=== PATIENT | male | born 1990 | race Caucasian/White ===

== ENCOUNTER 2017-09-20 17:30 | Emergency (ER) | payer OTHER ==
--- NOTE | 2017-09-20 17:35 | ED Physician Documentation ---
General Adult - HISTORIAN Historian: patient - HPI Stated Complaint: hyperglycemia Chief Complaint: General Adult Onset: other Timing: still present Severity: mild Further Comments: yes (He has had a provider issue with his new insurance. He states he is not able to get his insulin filled. He has tried with no approval. he states that he tried today and the pharmacist said it had to be 90 days with his new insurace but it could not be an ER provider had to be a listed PCP. He has an appt with a new provider that is with his insurance - appt is not until Saturday .) Last known Well Code/Unknown Code: Unknown - ROS CONST: no problems EYES/ENT: none CVS/RESP: none GI/: none MS/SKIN/LYMPH: none NEURO/PSYCH: headache. denies: fainting, dizziness, tingling, numbness, difficulty walking, difficulty with speech, anxiety, depression - PAST HX Past History: other (DM type I ) Other History: diabetes Type 1 Surgeries/Procedures: none Immunizations: UTD Allergies/Adverse Reactions: Allergies Allergy/AdvReac Type Severity Reaction Status Date / Time No Known Allergies Allergy Unverified 09/20/17 17:55 Home Medications: Ambulatory Orders Medication Instructions Recorded Insulin Lispro [Humalog] 09/20/17 - SOCIAL HX Smoking History: non-smoker Alcohol Use: none Drug Use: none - FAMILY HX Family History: No - REVIEWED ASSESSMENTS Nursing Assessment Reviewed: Yes Vitals Reviewed: Yes Progress - Progress Progress: 1843: Discussed results with pt for blood sugar today he would give himself 11 units DG 1899: discussed lab with pharmacist and his suggestion was Relion Insuin for now. Due to non fill of NON PCP insulin. DG 1999: symptoms improving DG General Adult Physical Exam - PHYSICAL EXAM GENERAL APPEARANCE: no distress EENT: eye inspection normal, ENT inspection normal NECK: normal inspection RESPIRATORY: no resp distress, chest non-tender, breath sounds normal CVS: reg rate & rhythm, heart sounds normal, equal pulses, no murmur ABDOMEN: soft, normal bowel sounds, no distension, non-tender SKIN: warm/dry, normal color EXTREMITIES: non-tender, normal range of motion, no evidence of injury, no edema NEURO: oriented X3, CN's nml as tested, motor nml, sensation nml, mood/affect nml, cognition normal Discharge Clincal Impression: Hyperglycemia due to type 1 diabetes mellitus Referrals: Antonio Weir MD [Primary Care Provider] - 2 Days Comments: 1. Relion Regular insulin from [employer] - due to pharmacy issues 2. Monitor sugar close 3. Watch diet 4. Return to ER for any concerns 5. Keep PCP appt Condition: Stable Disposition: 01 HOME, SELF-CARE Decision to Admit: NO Date of Decison to Admit: 09/20/17 Decision Time: 20:45
[2017-09-20] MEDS ORDERED: 0.9 % SODIUM CHLORIDE 1,000 ML IV ONE ×2 (17:45→18:50)
[2017-09-20 18:03] LABS: BASOPHILS % 0.9 (0.0-1.5); EOSINOPHILS % 1.8 % (0.0-6.8); MEAN CORPUSCULAR HEMOGLOBIN 29.2 pg (28.0-34.0); MEAN CORPUSCULAR VOLUME 83.2 fl (80.0-100.0); MONOCYTES % 4.7 % (0.0-11.0); NEUTROPHILS # 5.4 # k/uL (1.4-7.7)
[2017-09-20 18:30] LABS: eGFR (African) > 60; eGFR (Non-African) > 60
[2017-09-20] MEDS ORDERED: INSULIN REGULAR, HUMAN 100 UNIT/ML 3ML VIAL SQ ONE ×2 (18:40→19:56)
[2017-09-20 21:03] VITALS: BP 147/78
[2017-09-21 06:39] LABS: APPEARANCE,URINE CLEAR (CLEAR); COLOR,URINE YELLOW (YELLOW); OCCULT BLOOD,URINE NEGATIVE (NEGATIVE); UROBILINOGEN URINE 0.2 Eu (0.2-1.0)
== END 2017-09-20 21:00 | disposition home or self-care (01) ==
LOC: EDBD 17:30 → ED 17:30
DX: E10.649 Type 1 diabetes mellitus with hypoglycemia without coma (principal)
CPT/HCPCS: 80053; 81002; 83690; 85025; J1815; J7030; 96365; 96366; 96372; S1016

== ENCOUNTER 2018-02-04 10:45 | Emergency (ER) | payer OTHER ==
[2018-02-04 10:56] VITALS: BP 132/109
--- NOTE | 2018-02-04 11:03 | ED Physician Documentation ---
General Adult - HISTORIAN Historian: patient - HPI Stated Complaint: L Rib pain Chief Complaint: Fall Onset: minutes (30) Timing: still present Severity: mild Further Comments: yes (He states he started to fall and he tried to catch himself and felt a "pop" on his left upper chest - he felt rib area. The pain is worse with deep breath or cough. More with laughing. He has no other complaints. He is able to take a deep breath .) Last known Well Code/Unknown Code: Unknown - ROS CONST: no problems - PAST HX Past History: other (DM type 1 ) Immunizations: UTD Allergies/Adverse Reactions: Allergies Allergy/AdvReac Type Severity Reaction Status Date / Time No Known Allergies Allergy Verified 02/04/18 10:56 Home Medications: Ambulatory Orders Medication Instructions Recorded Insulin Lispro [Humalog] unit PRN PRN 09/20/17 - SOCIAL HX Smoking History: non-smoker Alcohol Use: none Drug Use: none - FAMILY HX Family History: No - VITAL SIGNS Vital Signs: Vital Signs Temp Pulse Resp BP Pulse Ox 97.5 F L 86 17 132/109 96 02/04/18 10:50 02/04/18 10:50 02/04/18 10:50 02/04/18 10:50 02/04/18 10:50 - REVIEWED ASSESSMENTS Nursing Assessment Reviewed: Yes Vitals Reviewed: Yes Progress - Progress Progress: 1202: discussed results and plan. He is refusing pain shot DG General Adult Physical Exam - PHYSICAL EXAM GENERAL APPEARANCE: no distress EENT: eye inspection normal, ENT inspection normal NECK: normal inspection RESPIRATORY: no resp distress, breath sounds normal, other (pain with palpation left lower chest directly under areola - no visable injury ) CVS: reg rate & rhythm, heart sounds normal ABDOMEN: soft BACK: normal inspection SKIN: warm/dry EXTREMITIES: non-tender, normal range of motion NEURO: oriented X3 Discharge Clincal Impression: Fracture of six ribs of left side Qualifiers: Encounter type: initial encounter Fracture type: closed Qualified Code(s): S22.42XA - Multiple fractures of ribs, left side, initial encounter for closed fracture Referrals: Antonio Weir MD [Primary Care Provider] - 2 Days Additional Instructions: 1. Tylenol or Ibuprofen as directed and needed for pain 2. Deep breaths 3. See PCP if any concerns or continued pain 4. Return to ER for any concerns Condition: Stable Disposition: 01 HOME, SELF-CARE Decision to Admit: NO Date of Decison to Admit: 02/04/18 Decision Time: 12:05
[2018-02-04] MEDS ORDERED: KETOROLAC TROMETHAMINE 60 MG/2 ML VIAL IM ONE (12:01)
--- NOTE | 2018-02-04 12:37 | Diagnostic Imaging Report ---
ROSALIND VELÁSQUEZ [facility] [id number] [facility].[address] [id number] Report Submission Date: Feb 04, 2018 11:59:36 AM CASHIER COURTESY BOOTH Patient Study Name: ERNESTO LOVING Date: Feb 04, 2018 11:37:40 AM CASHIER COURTESY BOOTH Modality Type: DX Gender: M Description: CHEST : 89 Institution: [facility] Physician: ROSALIND VELÁSQUEZ Left ribs History: Left rib pain. Fell on ice Four views of the left ribs were obtained which demonstrate the presence of a nondisplaced fracture involving lateral left 6th rib. There is no pneumothorax or pleural effusion. Impression: Nondisplaced fracture involving the lateral left 6th rib. No pneumothorax. Electronically signed on Feb 04, 2018 11:59:36 AM CASHIER COURTESY BOOTH by: Richelle HI
[2018-02-04 13:41] LABS: CANNABINOIDS NEGATIVE ng/mL (< 50); METHYLENEDIOXYMETHAMPHETAMINE NEGATIVE ng/mL (<500)
== END 2018-02-04 12:08 | disposition home or self-care (01) ==
LOC: ED 10:45
DX: S22.42XA Multiple fractures of ribs, left side, initial encounter for closed fracture (principal); E11.9 Type 2 diabetes mellitus without complications; W19.XXXA Unspecified fall, initial encounter; Y93.9 Activity, unspecified; Y92.9 Unspecified place or not applicable; Y99.9 Unspecified external cause status
CPT/HCPCS: 71100; 80377; 99282; 99283; G0481